=== PATIENT | female | born 1985 | race Caucasian/White ===

== ENCOUNTER 2017-07-21 14:36 | Emergency (ER) | payer OTHER ==
[2017-07-21 15:08] VITALS: BP 117/58
--- NOTE | 2017-07-21 16:06 | ED ---
Respiratory - HPI Summary HPI Summary: 32 YO F C/O COUGH/SPUTUM PRODUCTION X 9 DAYS. - History of Current Complaint Chief Complaint: UCGeneralIllness Stated Complaint: COUGH Time Seen by Provider: 07/21/17 15:52 Hx Obtained From: Patient Onset/Duration: Lasting Days - 9 Timing: Constant Initial Severity: Mild Current Severity: Mild Character: Cough (Productive) - YELLOW Sputum Amount: Small Sputum Color: Yellow Aggravating Factor(s): URI Alleviating Factor(s): OTC Medications Associated Signs and Symptoms: URI - Allergy/Home Medications Allergies/Adverse Reactions: Allergies Allergy/AdvReac Type Severity Reaction Status Date / Time Penicillins Allergy Rash Verified 07/21/17 15:08 PMH/Surg Hx/FS Hx/Imm Hx Previously Healthy: Yes - Surgical History Surgery Procedure, Year, and Place: none Infectious Disease History: No Infectious Disease History: Denies: Traveled Outside the [place] in Last 30 Days - Social History Alcohol Use: Occasionally Substance Use Type: Reports: None Smoking Status (MU): Never Smoked Tobacco Review of Systems Positive: Other - COUGH Eyes: Negative Positive: Nasal Discharge Cardiovascular: Negative Positive: Cough Gastrointestinal: Negative Genitourinary: Negative Musculoskeletal: Negative Skin: Negative Neurological: Negative Psychological: Normal All Other Systems Reviewed And Are Negative: Yes Physical Exam Triage Information Reviewed: Yes Vital Signs On Initial Exam: Initial Vitals Temp Pulse Resp BP Pulse Ox 98.8 F 80 18 117/58 98 07/21/17 15:05 07/21/17 15:05 07/21/17 15:05 07/21/17 15:05 07/21/17 15:05 Vital Signs Reviewed: Yes Appearance: Positive: Well-Appearing Skin: Positive: Skin Color Reflects Adequate Perfusion Head/Face: Positive: Normal Head/Face Inspection Eyes: Positive: Normal, EOMI, AVNI ENT: Positive: Nasal drainage Neck: Positive: Supple Respiratory/Lung Sounds: Positive: Clear to Auscultation, Breath Sounds Present Cardiovascular: Positive: Normal, RRR Musculoskeletal: Positive: Normal, Strength/ROM Intact Neurological: Positive: Normal Psychiatric: Positive: Normal AVPU Assessment: Alert Diagnostics - Vital Signs Vital Signs Temp Pulse Resp BP Pulse Ox 07/21/17 15:05 98.8 F 80 18 117/58 98 - Laboratory Lab Statement: Any lab studies that have been ordered have been reviewed, and results considered in the medical decision making process. Disposition - Diagnoses Provider Diagnoses: Bronchitis Discharge - Discharge Plan Condition: Stable Disposition: HOME Prescriptions: Azithromyxin HELEN (NF) [Z-Helen (Zithromax) 250 mg tabs #6] 2 tab PO .TODAY, THEN 1 DAILY #6 tab Patient Education Materials: Acute Bronchitis (ED) Referrals: Dejon oDyle MD [Primary Care Provider] - Additional Instructions: FOLLOW UP WITH YOUR DOCTOR. GET RECHECKED FOR ANY WORSENING OF YOUR CONDITION OR QUESTIONS OR CONCERNS.
== END 2017-07-21 16:05 | disposition home or self-care (01) ==
LOC: UCEAST 14:36
DX: J40 Bronchitis, not specified as acute or chronic (principal); Z88.0 Allergy status to penicillin
CPT/HCPCS: 99212; G0463